=== PATIENT | female | born 2000 | race Caucasian/White ===

== ENCOUNTER 2022-05-28 21:36 | Emergency (ER) | payer SELFPAY ==
[2022-05-28] MEDS ORDERED: Sulfamethoxazole/Trimethoprim 800-160 MG Tab ONE (22:30)
== END 2022-05-28 22:40 | disposition home or self-care (01) ==
LOC: LB.ED 21:36
DX: N39.0 Urinary tract infection, site not specified (principal)
CPT/HCPCS: 81001; 99283; A9270-GY

== ENCOUNTER 2022-07-07 23:28 | Emergency (ER) | payer MEDICAID ==
[2022-07-07] MEDS ORDERED: Bacitracin Oint 1 GM U/D Packet TOP ONE (23:40)
== END 2022-07-08 00:25 | disposition home or self-care (01) ==
LOC: LB.ED 23:28
DX: S70.312A Abrasion, left thigh, initial encounter (principal); W22.09XA Striking against other stationary object, initial encounter
CPT/HCPCS: 99282

== ENCOUNTER 2022-10-09 03:24 | Emergency (ER) | payer MEDICAID ==
[2022-10-09] MEDS: Acetaminophen 325 MG Tab PO ONE ×2 (03:59→10:38)
[2022-10-09 04:13] LABS: APPEARANCE,URINE CLEAR (CLEAR); BILIRUBIN,URINE NEGATIVE (NEGATIVE); COLOR,URINE YELLOW; GLUCOSE,URINE NEGATIVE (NEGATIVE); KETONES,URINE NEGATIVE (NEGATIVE); LEUKOCYTE ESTERASE,URINE NEGATIVE (NEGATIVE); NITRITE,URINE NEGATIVE (NEGATIVE); OCCULT BLOOD,URINE LARGE (NEGATIVE); PH,URINE 5.5 (5.0-8.0); PROTEIN,URINE 100 mg/dL (NEGATIVE); UROBILINOGEN,URINE 0.2 E.U./dL (0.2-1.0)
[2022-10-09 04:17] LABS: AMPHETAMINES SCREEN, URINE NEGATIVE (NEGATIVE); BARBITURATE SCREEN,URINE NEGATIVE (NEGATIVE); BENZODIAZEPINES SCREEN,URINE NEGATIVE (NEGATIVE); METHAMPHETAMINES SCREEN, URINE NEGATIVE (NEGATIVE)
[2022-10-09 04:18] LABS: METHADONE SCREEN, URINE NEGATIVE (NEGATIVE); OXYCODONE SCREEN,URINE NEGATIVE (NEGATIVE); THC SCREEN,URINE 50 NG/ML POSITIVE (NEGATIVE)
[2022-10-09 04:26] LABS: BACTERIA,URINE FEW /HPF; EPITHELIAL CELLS,URINE MODERATE /HPF; MUCUS,URINE FEW /HPF; WBC,URINE 0-5 /HPF
[2022-10-09] MEDS: LORazepam 1 MG Tab PO STA (11:19)
[2022-10-09] MEDS: LORazepam 1 MG Tab PO ONE (12:16)
[2022-10-09 14:21] VITALS: BP 121/87; PULSE 98
[2022-10-11] MEDS: LORazepam 1 MG Tab ONE ×2 (14:37→14:38)
[2022-10-11] MEDS: Acetaminophen 325 MG Tab PO ONE (14:38)
[2022-10-11] MEDS: Acetaminophen 325 MG Tab ONE (14:38)
== END 2022-10-09 14:15 | disposition home or self-care (01) ==
LOC: LB.ED 03:24
DX: S52.501A Unspecified fracture of the lower end of right radius, initial encounter for closed fracture (principal); F10.129 Alcohol abuse with intoxication, unspecified; E66.9 Obesity, unspecified; Z72.0 Tobacco use; Z68.33 Body mass index [BMI] 33.0-33.9, adult; Y04.0XXA Assault by unarmed brawl or fight, initial encounter
CPT/HCPCS: 29125; 36415; 73110; 80307; 81001; 99283; A9270